=== PATIENT | male | born 1985 | race American Indian/Alaskan Native ===

== ENCOUNTER 2017-11-15 01:26 | Emergency (ER) | payer BC ==
[2017-11-15 01:34] VITALS: BP 145/83
--- NOTE | 2017-11-15 01:54 | Emergency Department Report ---
<GARCIA BASSETT - Last Filed: 11/15/17 01:50> ED Lower Extremity HPI - General Chief Complaint: Extremity Injury, Lower Stated Complaint: LEFT ANKLE PAIN Time Seen by Provider: 11/15/17 01:43 Source: patient Mode of arrival: Ambulatory Limitations: No Limitations - History of Present Illness Initial Comments: This is a 32-year-old -[place] male history of gout who presents for left ankle pain and swelling 3 days usual treatment regimen pain started 3 days ago pt denies fall injury or trauma, current pain is 6/10 exacerbated by weight bearing movement palpation, pain is relieved by rest off loading Complaint: ankle injury -: days(s) Injury: Ankle: Left Type of Injury: other (none) Place: home Severity: moderate Severity scale (0 -10): 5 Improves With: other (nothing tried ) Worsens With: weight bearing, movement, palpation Context: other (denies injury ) Associated Symptoms: swelling, able to partially bear weight - Related Data Previous Rx's Medication Instructions Recorded Last Taken Type Indomethacin 50 mg PO Q8H #30 capsule 11/15/17 Unknown Rx predniSONE [Deltasone] 40 mg PO QDAY #10 tab 11/15/17 Unknown Rx Allergies Allergy/AdvReac Type Severity Reaction Status Date / Time No Known Allergies Allergy Verified 11/15/17 01:37 ED Review of Systems ROS: Stated complaint: LEFT ANKLE PAIN Other details as noted in HPI Constitutional: denies: chills, fever Eyes: denies: eye pain, eye discharge, vision change ENT: denies: ear pain, throat pain Respiratory: denies: cough, shortness of breath, wheezing Cardiovascular: denies: chest pain, palpitations Endocrine: no symptoms reported Gastrointestinal: denies: abdominal pain, nausea, diarrhea Genitourinary: denies: urgency, dysuria Musculoskeletal: joint swelling, arthralgia, myalgia Skin: denies: rash, lesions Neurological: denies: headache, weakness, paresthesias Psychiatric: denies: anxiety, depression Hematological/Lymphatic: denies: easy bleeding, easy bruising ED Past Medical Hx - Past Medical History Previous Medical History?: Yes Additional medical history: gout - Surgical History Past Surgical History?: No - Social History Smoking Status: Former Smoker Substance Use Type: Alcohol - Medications Home Medications: Home Medications Medication Instructions Recorded Confirmed Last Taken Type Indomethacin 50 mg PO Q8H #30 capsule 11/15/17 Unknown Rx predniSONE [Deltasone] 40 mg PO QDAY #10 tab 11/15/17 Unknown Rx ED Physical Exam - General Limitations: No Limitations General appearance: alert, in no apparent distress - Head Head exam: Present: atraumatic, normocephalic - Eye Eye exam: Present: normal appearance - ENT ENT exam: Present: mucous membranes moist - Neck Neck exam: Present: normal inspection, full ROM. Absent: tenderness, lymphadenopathy, thyromegaly - Respiratory Respiratory exam: Present: normal lung sounds bilaterally. Absent: respiratory distress - Cardiovascular Cardiovascular Exam: Present: regular rate, normal rhythm. 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 Absent: calf tenderness - Expanded Lower Extremity Exam Left Ankle exam: Present: tenderness, swelling. Absent: abrasion, laceration, ecchymosis, deformity, crepidus, dislocation, erythema, anterior draw sign Foot/Toe exam: Present: normal inspection, full ROM. Absent: tenderness, swelling, abrasion, laceration, ecchymosis, deformity, crepidus, dislocation, erythema, amputation, puncture wound, foreign body, calcaneal tenderness, tenderness at base of 5th metatarsal, nail avulsion, subungual hematoma Neuro vascular tendon exam: Present: no vascular compromise. Absent: pulse deficit, abnormal cap refill, motor deficit, sensory deficit, tendon deficit, extremity cold to touch, pallor, abnormal 2-point discrimination, decreased fine /light touch, foot drop, peroneal nerve deficit, significant pain with passive ROM of distal joint Gait: Positive: observed and limited by pain - Back Exam Back exam: Present: normal inspection, full ROM. Absent: CVA tenderness (R), CVA tenderness (L), muscle spasm, paraspinal tenderness, vertebral tenderness - Neurological Exam Neurological exam: Present: alert, oriented X3, CN II-XII intact, abnormal gait , reflexes normal. Absent: motor sensory deficit - Expanded Neurological Exam Expanded Patient oriented to: Present: person, place, time Speech: Present: fluid speech Motor strength exam: RUE: 5, LUE: 5, RLE: 5, LLE: 5 DTR: knee (R): 2+, knee (L): 2+, ankle (R): 2+, ankle (L): 2+ Best Eye Response (Jose J): (4) open spontaneously Best Motor Response ([place]): (6) obeys commands Best Verbal Response ([place]): (5) oriented Jose J Total: 15 - Psychiatric Psychiatric exam: Present: normal affect, normal mood - Skin Skin exam: Present: warm, dry, intact, normal color. Absent: rash ED Course Vital Signs 11/15/17 01:27 Temperature 98.0 F Pulse Rate 104 H Respiratory 20 Rate Blood Pressure 145/83 O2 Sat by Pulse 93 Oximetry ED Lower Extremity MDM - Radiology Data Radiology results: report reviewed, image reviewed no fracture no soft tissue abnormality - Medical Decision Making This is gout exacerbation plan prednisone 40 mg by mouth daily 5 indomethacin 50 mg by mouth 3 times a day 10 follow PCP in 2-3 days patient verbalized agreement and understanding to DC plan we'll DC to home in stable condition at this time patient is ambulatory symptoms are improved. Critical care attestation.: If time is entered above; I have spent that time in minutes in the direct care of this critically ill patient, excluding procedure time. ED Disposition Disposition: DC-01 TO HOME OR SELFCARE Is pt being admited?: No Does the pt Need Aspirin: No Condition: Good Instructions: Acute Gouty Arthritis (ED) Prescriptions: Indomethacin 50 mg PO Q8H #30 capsule predniSONE [Deltasone] 40 mg PO QDAY #10 tab Referrals: PRIMARY CARE, [Primary Care Provider] - 3-5 Days Forms: Work/School Release Form(ED) Time of Disposition: 02:20 <ADI VALENTIN - Last Filed: 11/15/17 12:27> ED Lower Extremity MDM - Medical Decision Making I was available for consultations at all times during the patient stay. I did not personally see and was not involved in the care of the patient.
[2017-11-15] MEDS ORDERED: DELTASONE PO ONE (02:04)
[2017-11-15] MEDS ORDERED: ULTRAM PO ONE (02:04)
--- NOTE | 2017-11-15 03:05 | XRay Report ---
FINAL REPORT PROCEDURE: XR ANKLE 3+V LT TECHNIQUE: LEFT ankle radiographs, AP, lateral, and oblique views. CPT 42617 HISTORY: Lt ankle pain tenderness and swelling COMPARISON: No prior studies are available for comparison. FINDINGS: Fracture (s) and/or Dislocation(s): None. Alignment: Normal. Joint space(s): Normal. Soft tissues: Normal. Bone mineralization: Normal. Foreign bodies: None. Calcaneal spurring: There is small calcaneal spurs.. IMPRESSION: There are no fractures or malalignments..
== END 2017-11-15 02:28 | disposition home or self-care (01) ==
LOC: ED 01:26
DX: M10.9 Gout, unspecified (principal); M25.572 Pain in left ankle and joints of left foot; R22.42 Localized swelling, mass and lump, left lower limb; Z87.891 Personal history of nicotine dependence; Z79.899 Other long term (current) drug therapy
CPT/HCPCS: 73610; 99283; J7512

== ENCOUNTER 2018-11-24 22:24 | Emergency (ER) | payer BC ==
[2018-11-24] MEDS ORDERED: ZITHROMAX PO STA (23:56)
[2018-11-24] MEDS ORDERED: ROCEPHIN IM STA (23:56)
[2018-11-24] MEDS ORDERED: XYLOCAINE 1% MPF 5 mL INFILTRATI ONE (23:56)
--- NOTE | 2018-11-25 00:01 | Emergency Department Report ---
ED Male HPI - General Chief complaint: Urogenital-Male Stated complaint: BLADDER PRESSURE Time Seen by Provider: 11/24/18 23:55 Source: patient Mode of arrival: Ambulatory Limitations: No Limitations - History of Present Illness MD Complaint: dysuria -: week(s) Location: penis Radiation: none Severity: mild Quality: burning Consistency: constant Improves with: none Worsens with: none dysuria. denies: swelling, mass, rash, urinary retention, blood in urine, fever, nausea/vomiting, incontinence - Related Data Previous Rx's Medication Instructions Recorded Last Taken Type Indomethacin 50 mg PO Q8H #30 capsule 11/15/17 Unknown Rx predniSONE [Deltasone] 40 mg PO QDAY #10 tab 11/15/17 Unknown Rx Ibuprofen 800 mg PO Q6H 5 Days #20 tablet 04/03/18 Unknown Rx Allergies Allergy/AdvReac Type Severity Reaction Status Date / Time No Known Allergies Allergy Verified 11/15/17 01:37 ED Review of Systems ROS: Stated complaint: BLADDER PRESSURE Other details as noted in HPI Comment: All other systems reviewed and negative ED Past Medical Hx - Past Medical History Previous Medical History?: Yes Additional medical history: gout - Surgical History Past Surgical History?: No - Social History Smoking Status: Never Smoker Substance Use Type: None - Medications Home Medications: Home Medications Medication Instructions Recorded Confirmed Last Taken Type Indomethacin 50 mg PO Q8H #30 capsule 11/15/17 Unknown Rx predniSONE [Deltasone] 40 mg PO QDAY #10 tab 11/15/17 Unknown Rx Ibuprofen 800 mg PO Q6H 5 Days #20 tablet 04/03/18 Unknown Rx ED Physical Exam - General Limitations: No Limitations General appearance: alert, in no apparent distress - Head Head exam: Present: atraumatic, normocephalic - Eye Eye exam: Present: normal appearance - ENT ENT exam: Present: mucous membranes moist - Neck Neck exam: Present: normal inspection - Respiratory Respiratory exam: Present: normal lung sounds bilaterally. Absent: respiratory distress - Cardiovascular Cardiovascular Exam: Present: regular rate, normal rhythm. Absent: systolic murmur, diastolic murmur, rubs, gallop - GI/Abdominal GI/Abdominal exam: Present: soft, normal bowel sounds - Rectal Rectal exam: Present: deferred - exam: Present: normal inspection External exam: Present: normal external exam - Extremities Exam Extremities exam: Present: normal inspection - Back Exam Back exam: Present: normal inspection - Neurological Exam Neurological exam: Present: alert, oriented X3 - Psychiatric Psychiatric exam: Present: normal affect, normal mood - Skin Skin exam: Present: warm, dry, intact, normal color. Absent: rash ED Course Vital Signs 11/24/18 23:02 Temperature 98.4 F Pulse Rate 88 Respiratory 18 Rate Blood Pressure 161/97 O2 Sat by Pulse 96 Oximetry Critical care attestation.: If time is entered above; I have spent that time in minutes in the direct care of this critically ill patient, excluding procedure time. ED Disposition Clinical Impression: Dysuria Disposition: DC-01 TO HOME OR SELFCARE Is pt being admited?: No Does the pt Need Aspirin: No Condition: Stable Instructions: Dysuria (ED) Referrals: [facility] [Provider Group] - 3-5 Days
[2018-11-25 02:19] LABS: Bilirubin,Urine NEG (Negative); Blood,Urine NEG (Negative); Color,Urine Yellow (Yellow); Mucus,Urine FEW /HPF; Protein,Urine <15 mg/dL mg/dL (Negative)
[2018-11-25 02:41] VITALS: BP 146/89
== END 2018-11-25 02:41 | disposition home or self-care (01) ==
LOC: ED 22:24
DX: R30.0 Dysuria (principal); Z87.39 Personal history of other diseases of the musculoskeletal system and connective tissue; Z79.899 Other long term (current) drug therapy
CPT/HCPCS: 81001; 87591; 96372; 99283; J0696

== ENCOUNTER 2019-08-19 13:12 | Emergency (ER) | payer BC ==
[2019-08-19 13:24] VITALS: BP 126/102
--- NOTE | 2019-08-19 15:22 | XRay Report ---
LEFT KNEE 4 VIEWS INDICATION / CLINICAL INFORMATION: left knee pain, joint effusion. COMPARISON: None available. FINDINGS: BONES and JOINT(S): No acute fracture or subluxation. No significant arthritis. SOFT TISSUES: There is a probable small joint effusion. No additional significant abnormality. ADDITIONAL FINDINGS: None. IMPRESSION: Probable small left knee joint effusion. Signer Name: Khoa May MD Signed: 08/19/2019 3:18 PM Workstation Name: [id number]
--- NOTE | 2019-08-19 15:30 | Emergency Department Report ---
ED Extremity Problem HPI - General Chief complaint: Extremity Problem,Nontraumatic Stated complaint: LEFT KNEE PAIN Time Seen by Provider: 08/19/19 14:36 Source: patient Mode of arrival: Stretcher Limitations: No Limitations - History of Present Illness Initial comments: Patient is a 33-year-old male presents emergency room with complaints of left knee pain for the last couple days. He denies any fall or injury. He states that his left knee feels swollen. He states that he has pain with movement and pain with walking. He states he has been taking ibuprofen without much relief. He states that he took 1 hydrocodone which improved his pain. He has not seen orthopedic doctor. He denies any numbness or weakness. He has a past medical history of hypertension and did not take his medication today. He denies any allergies to medications. - Related Data Previous Rx's Medication Instructions Recorded Last Taken Type Indomethacin 50 mg PO Q8H #30 capsule 11/15/17 Unknown Rx predniSONE [Deltasone] 40 mg PO QDAY #10 tab 11/15/17 Unknown Rx Ibuprofen 800 mg PO Q6H 5 Days #20 tablet 04/03/18 Unknown Rx Indomethacin 50 mg PO Q8H #21 capsule 08/19/19 Unknown Rx predniSONE [Deltasone] 40 mg PO QDAY 5 Days #10 tab 08/19/19 Unknown Rx traMADoL [Ultram 50 MG tab] 50 mg PO Q6HR PRN #7 tablet 08/19/19 Unknown Rx Allergies Allergy/AdvReac Type Severity Reaction Status Date / Time No Known Allergies Allergy Verified 11/15/17 01:37 ED Review of Systems ROS: Stated complaint: LEFT KNEE PAIN Other details as noted in HPI Comment: All other systems reviewed and negative ED Past Medical Hx - Past Medical History Previous Medical History?: Yes Additional medical history: gout - Surgical History Past Surgical History?: No - Social History Smoking Status: Never Smoker Substance Use Type: None - Medications Home Medications: Home Medications Medication Instructions Recorded Confirmed Last Taken Type Indomethacin 50 mg PO Q8H #30 capsule 11/15/17 Unknown Rx predniSONE [Deltasone] 40 mg PO QDAY #10 tab 11/15/17 Unknown Rx Ibuprofen 800 mg PO Q6H 5 Days #20 tablet 04/03/18 Unknown Rx Indomethacin 50 mg PO Q8H #21 capsule 08/19/19 Unknown Rx predniSONE [Deltasone] 40 mg PO QDAY 5 Days #10 tab 08/19/19 Unknown Rx traMADoL [Ultram 50 MG tab] 50 mg PO Q6HR PRN #7 tablet 08/19/19 Unknown Rx ED Physical Exam - General Limitations: No Limitations General appearance: alert, other (appears to be in slight discomfort) - Head Head exam: Present: atraumatic, normocephalic - Eye Eye exam: Present: normal appearance - ENT ENT exam: Present: mucous membranes moist - Extremities Exam Extremities exam: Present: other (generalized ttp of the left knee, small amount of edema to the left knee, no erythema, no increased warmth, decreased ROM secondary to discomfort, neurovasculalry intact) - Neurological Exam Neurological exam: Present: alert, oriented X3 - Psychiatric Psychiatric exam: Present: normal affect, normal mood - Skin Skin exam: Present: warm, dry ED Course Vital Signs 08/19/19 13:18 Temperature 97.4 F L Pulse Rate 101 H Respiratory 16 Rate Blood Pressure 126/102 O2 Sat by Pulse 96 Oximetry ED Medical Decision Making - Radiology Data Radiology results: report reviewed LEFT KNEE 4 VIEWS INDICATION / CLINICAL INFORMATION: left knee pain, joint effusion. COMPARISON: None available. FINDINGS: BONES and JOINT(S): No acute fracture or subluxation. No significant arthritis. SOFT TISSUES: There is a probable small joint effusion. No additional significant abnormality. ADDITIONAL FINDINGS: None. IMPRESSION: Probable small left knee joint effusion. Signer Name: Khoa May MD Signed: 08/19/2019 3:18 PM Workstation Name: [id number] Transcribed By: MN Dictated By: Khoa May MD Electronically Authenticated By: Khoa May MD Signed Date/Time: 08/19/19 1518 DD/ 1517 TD/TT: - Medical Decision Making Patient is a 33-year-old male presents emergency room with complaints of left knee pain for the last couple days. He denies any fall or injury. He states that his left knee feels swollen. He states that he has pain with movement and pain with walking. He states he has been taking ibuprofen without much relief. He states that he took 1 hydrocodone which improved his pain. He has not seen orthopedic doctor. He denies any numbness or weakness. He has a past medical history of hypertension and did not take his medication today. He denies any allergies to medications. on exam: generalized ttp of the left knee, small amount of edema to the left knee, no erythema, no increased warmth, decreased ROM secondary to discomfort, neurovasculalry intact. XR of the left knee: Probable small left knee joint effusion. No large joint effusion that requires arthrocentesis emergently. No signs of septic joint. Could be related to an arthritis versus gout. Patient given prescription for indomethacin, steroids, tramadol. Patient will be referred to orthopedic doctor. advised pt Please take medication as prescribed. Do not drive or operate heavy machinery while taking pain medication. Please follow-up with an orthopedic doctor for further evaluation. Return to the emergency room for any new or worsening symptoms. Critical care attestation.: If time is entered above; I have spent that time in minutes in the direct care of this critically ill patient, excluding procedure time. ED Disposition Clinical Impression: Left knee pain Qualifiers: Chronicity: acute Qualified Code(s): M25.562 - Pain in left knee Joint effusion Qualifiers: Effusion of joint location: knee Laterality: left Qualified Code(s): M25.462 - Effusion, left knee Disposition: DC- TO HOME OR SELFCARE Is pt being admited?: No Does the pt Need Aspirin: No Condition: Stable Instructions: Acute Gouty Arthritis (ED), Knee Pain (ED), RICE Therapy (ED) Additional Instructions: Please take medication as prescribed. Do not drive or operate heavy machinery while taking pain medication. Please follow-up with an orthopedic doctor for further evaluation. Return to the emergency room for any new or worsening symptoms. Prescriptions: predniSONE [Deltasone] 40 mg PO QDAY 5 Days #10 tab Indomethacin 50 mg PO Q8H #21 capsule traMADoL [Ultram 50 MG tab] 50 mg PO Q6HR PRN #7 tablet PRN Reason: Pain , Severe (7-10) Referrals: SHANIA SCHMITT MD [Staff Physician] - 3-5 Days [facility] [Provider Group] - 3-5 Days Forms: Work/School Release Form(ED) Time of Disposition: 15:28 Print Language: CZECH
== END 2019-08-19 15:40 | disposition home or self-care (01) ==
LOC: ED 13:12
DX: M25.562 Pain in left knee (principal); M25.462 Effusion, left knee
CPT/HCPCS: 99283

== ENCOUNTER 2020-09-03 09:53 | Emergency (ER) | payer BC ==
[2020-09-03 10:06] VITALS: BP 151/125
--- NOTE | 2020-09-03 10:11 | Emergency Department Report ---
Chief Complaint: Extremity Injury, Lower Stated Complaint: SWOLLEN LEFT KNEE Time Seen by Provider: 09/03/20 10:06 - HPI History of Present Illness: 34 yo with l knee pain since Wednesday when he hit it on car door ambulatory - ROS Review of Systems: knee pain sp contusion no other complaints - Exam Vital Signs: Vital Signs 09/03/20 10:03 Temperature 98.5 F Pulse Rate 77 Respiratory 18 Rate Blood Pressure 151/125 O2 Sat by Pulse 100 Oximetry hx htn did not take his bp meds no cp no sob no headache pos knee pain educated on taking meds he will do so he will also follow up with pcp Physical Exam: alert oriented ambulatory no focal def. s1s2 lungs cta abd snt knee- no swelling/bruising no tenderness on palpation ambulatory pt requesting work note MSE screening note: Focused history and physical exam performed. Due to findings the following was ordered: no life threat a/c htn- did not take meds this AM educated on bp and stroke risk referral to pcp knee pain- self limiting conservative are referral to ortho MSE home with referrals Patient discussed with doctor:: MADELINE BERMUDEZ ED Disposition for MSE Clinical Impression: Knee pain, Chronic knee pain Disposition: Z-07 MED SCREENING EXAM-LEFT Is pt being admited?: No Does the pt Need Aspirin: No Condition: Stable Instructions: Acute Knee Pain, Adult Additional Instructions: ice rest elevate take bp meds follow up with pcp referral below motrin over the counter 800 mg every 8 hours for pain- take with food alternate with tylenol 1000 mg every 8 hours for pain Referrals: REUBEN WEBER MD [Staff Physician] - 3-5 Days SHANIA SCHMITT MD [Staff Physician] - 3-5 Days Forms: Work/School Release Form(ED) Time of Disposition: 10:10
== END 2020-09-03 11:18 | disposition left against medical advice (07) ==
LOC: ED 09:53
DX: M79.89 Other specified soft tissue disorders (principal); Z53.21 Procedure and treatment not carried out due to patient leaving prior to being seen by health care provider

== ENCOUNTER 2020-11-20 09:39 | Emergency (ER) | payer SELFPAY ==
[2020-11-20 10:20] VITALS: BP 141/82
[2020-11-20] MEDS ORDERED: KETOROLAC 60 MG/2 ML INJ IM ONE (12:18)
[2020-11-20] MEDS ORDERED: HYDROcodone/ACETAMINOPHEN 5-325 MG TAB PO ONE (12:18)
--- NOTE | 2020-11-20 12:26 | Emergency Department Report ---
ED General Adult HPI - General Chief complaint: Extremity Injury, Lower Stated complaint: RIGHT HIP PAIN Time Seen by Provider: 11/20/20 10:42 Source: patient Mode of arrival: Ambulatory Limitations: No Limitations - History of Present Illness Initial comments: 35-year-old -[place] male patient presents with complaints of sudden onset of right hip pain x2 days. He denies any injury, leg swelling, numbness/tingling/weakness in his limbs, or difficulty with movement of the limb. He rates his current pain as a 9/10 in severity and states it occurs with walking and bending of the hip. No history of cancer or fever/chills/sweats per patient. Ibuprofen and Flexeril are not helping per patient -: Sudden - Related Data Previous Rx's Medication Instructions Recorded Last Taken Type Amlodipine Besylate [Norvasc] 5 mg PO DAILY #30 tablet 09/03/20 Unknown Rx Naproxen [Naprosyn] 500 mg PO BID PRN #20 tablet 11/20/20 Unknown Rx methocarbamoL [Methocarbamol] 1,500 mg PO TID PRN #24 tablet 11/20/20 Unknown Rx Allergies Allergy/AdvReac Type Severity Reaction Status Date / Time No Known Allergies Allergy Verified 09/03/20 10:07 ED Review of Systems ROS: Stated complaint: RIGHT HIP PAIN Other details as noted in HPI Constitutional: denies: chills, diaphoresis, fever, malaise, weakness Gastrointestinal: denies: abdominal pain Genitourinary: denies: urgency, dysuria, frequency, hematuria Musculoskeletal: arthralgia. denies: joint swelling Skin: denies: change in color Neurological: denies: numbness, paresthesias ED Past Medical Hx - Past Medical History Previous Medical History?: Yes Hx Hypertension: Yes Additional medical history: gout - Surgical History Past Surgical History?: No - Social History Smoking Status: Current Every Day Smoker Substance Use Type: Alcohol - Medications Home Medications: Home Medications Medication Instructions Recorded Confirmed Last Taken Type Amlodipine Besylate [Norvasc] 5 mg PO DAILY #30 tablet 09/03/20 Unknown Rx Naproxen [Naprosyn] 500 mg PO BID PRN #20 tablet 11/20/20 Unknown Rx methocarbamoL [Methocarbamol] 1,500 mg PO TID PRN #24 tablet 11/20/20 Unknown Rx ED Physical Exam - General Limitations: No Limitations General appearance: alert, in no apparent distress, obese (morbid) - Head Head exam: Present: atraumatic, normocephalic - Eye Eye exam: Present: normal appearance. Absent: scleral icterus - GI/Abdominal GI/Abdominal exam: Present: soft. Absent: tenderness - Expanded Lower Extremity Exam Right Hip exam: Present: full ROM, tenderness (Lateral and groin). Absent: swelling, deformity, crepidus Knee exam: Present: normal inspection Lower Leg exam: Present: normal inspection Gait: Positive: antalgic - Back Exam Back exam: Absent: vertebral tenderness - Expanded Back Exam Expanded Back exam: Absent: saddle anesthesia - Neurological Exam Neurological exam: Present: alert, oriented X3 - Psychiatric Psychiatric exam: Present: normal affect, normal mood - Skin Skin exam: Present: warm, dry, intact, normal color. Absent: rash ED Course Vital Signs 11/20/20 11/20/20 10:18 10:19 Temperature 98.3 F Pulse Rate 91 H Respiratory 18 Rate Blood Pressure 141/82 O2 Sat by Pulse 95 Oximetry ED Medical Decision Making - Radiology Data Radiology results: report reviewed Right hip radiograph, 2 views HISTORY: Pain COMPARISON: None FINDINGS: No acute fracture. 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 No evidence of femoral head osteonecrosis. 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 No focal soft tissue abnormality. IMPRESSION: No acute abnormality of the right hip. 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 No acute bony abnormalities. Patient is able to ambulate. Recommend follow-up with orthopedics for further evaluation of bony lesion and hip pain. He is well- appearing, his vitals are within normal limits, he is stable for discharge home. Discussed strict return precautions in detail with patient who verbalizes understanding. Critical care attestation.: If time is entered above; I have spent that time in minutes in the direct care of this critically ill patient, excluding procedure time. ED Disposition Clinical Impression: Acute right hip pain, Abnormal x-ray of femur Disposition: DC-01 TO HOME OR SELFCARE Is pt being admited?: No Condition: Stable Instructions: Hip Pain Prescriptions: methocarbamoL [Methocarbamol] 1,500 mg PO TID PRN #24 tablet PRN Reason: muscle spasm/tightness Naproxen [Naprosyn] 500 mg PO BID PRN #20 tablet PRN Reason: pain Referrals: [facility] [Provider Group] - 3-5 Days Forms: Work/School Release Form(ED)
--- NOTE | 2020-11-20 13:38 | XRay Report ---
Right hip radiograph, 2 views HISTORY: Pain COMPARISON: None FINDINGS: No acute fracture. 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 No evidence of femoral head osteonecrosis. 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 No focal soft tissue abnormality. IMPRESSION: No acute abnormality of the right hip. Signer Name: Bill Carballo MD Signed: 11/20/2020 1:33 PM Workstation Name: [id number]
--- NOTE | 2020-11-20 14:42 | Vascular Lab Report ---
DUPLEX DOPPLER LOWER EXTREMITY VEINS, RIGHT INDICATION / CLINICAL INFORMATION: acute upper thigh pain. TECHNIQUE: Duplex doppler imaging was performed through the veins of the right lower extremity using venous comp ression and other maneuvers. COMPARISON: None available. FINDINGS: RIGHT COMMON FEMORAL VEIN: Negative. RIGHT FEMORAL VEIN: Negative. RIGHT POPLITEAL VEIN: Negative. RIGHT CALF VEINS: Negative. ADDITIONAL FINDINGS: None. IMPRESSION: 1. No sonographic evidence for DVT in the right lower extremity. Signer Name: Bill Carballo MD Signed: 11/20/2020 2:38 PM Workstation Name: [id number]
== END 2020-11-20 15:02 | disposition home or self-care (01) ==
LOC: ED 09:39
DX: M25.551 Pain in right hip (principal); R93.7 Abnormal findings on diagnostic imaging of other parts of musculoskeletal system; I10 Essential (primary) hypertension; F17.200 Nicotine dependence, unspecified, uncomplicated; Z79.899 Other long term (current) drug therapy
CPT/HCPCS: 73502; 93971; 96372; 99284; J1885

== ENCOUNTER 2021-04-21 13:30 | Emergency (ER) | payer SELFPAY ==
[2021-04-21 14:31] VITALS: BP 175/102
[2021-04-21] MEDS ORDERED: oxyCODONE /ACETAMINOPHEN 5-325MG TAB PO ONE (18:21)
[2021-04-21] MEDS ORDERED: KETOROLAC 60 MG/2 ML INJ IM ONE (18:21)
[2021-04-21] MEDS ORDERED: COLCHICINE 0.6 MG TAB PO ONE (18:21)
[2021-04-21] MEDS ORDERED: dexAMETHasone 20 MG/5 ML VIAL IV ONE (18:21)
--- NOTE | 2021-04-21 18:24 | Emergency Department Report ---
Upper Extremity - HPI Chief Complaint: Extremity Injury, Upper Stated Complaint: ELBOW PAIN Time Seen by Provider: 04/21/21 18:21 Upper Extremity: Right Elbow Occurred When: 4 Days Mechanism: Unsure Severity: severe Symptoms: Yes Pain with Movement, Yes Limited Range of Movement, Yes Swelling, No Deformity, No Numbness, No Weakness, No Bruising/Ecchymosis, No Laceration or Abrasion Other History: 35-year-old -[place] male presents to the emergency room complaining of right elbow pain that started about Wednesday. Patient denies any injury to his elbow. He states he does have a history of gout but mostly in his foot. Patient denies any recent consumption of red meat liquor cheese. He states he did have seafood last month. States is been drinking plenty of water but did have some lemonade today. Patient denies any fever or chills. Reports any past medical history of gout. ED Review of Systems ROS: Stated complaint: ELBOW PAIN Other details as noted in HPI Comment: All other systems reviewed and negative ED Past Medical Hx - Past Medical History Hx Hypertension: Yes Additional medical history: gout - Social History Smoking Status: Unknown if ever smoked - Medications Home Medications: Home Medications Medication Instructions Recorded Confirmed Last Taken Type Amlodipine Besylate [Norvasc] 5 mg PO DAILY #30 tablet 09/03/20 Unknown Rx methocarbamoL [Methocarbamol] 1,500 mg PO TID PRN #24 tablet 11/20/20 Unknown Rx Colchicine [Colcrys] 0.6 mg PO BID 3 Days #6 tablet 04/21/21 Unknown Rx Naproxen [Naprosyn] 500 mg PO BID PRN #20 tablet 04/21/21 Unknown Rx oxyCODONE /ACETAMINOPHEN [Percocet 1 tab PO Q6HR PRN #12 tablet 04/21/21 U nknown Rx 5/325 mg] predniSONE [Deltasone] 50 mg PO QDAY #5 tab 04/21/21 Unknown Rx Upper Extremity Exam - Exam General: Vital signs noted. No distress. Alert and acting appropriately. Head and Torso: No HEENT Abnormality, No Neck Tenderness, No Chest/Lungs Abnormality, No Abdominal Tenderness, No Back Tenderness Shoulder Exam: Yes Normal Range of Motion in Shoulder, No Shoulder Tenderness, No Clavicle Tenderness, No Shoulder Deformity, No AC Joint Tenderness Arm Exam: No Arm/Humerus Tenderness, No Arm Deformity Elbow: Yes Elbow Tenderness, Yes Normal Range of Motion in Elbow, No Elbow Deformity Forearm: Yes Forearm Tenderness, No Forearm Deformity, No Pain with Pronation, No Pain with Supination Wrist: Yes Normal ROM in Wrist, No Wrist Tenderness, No Wrist Deformity, No Snuffbox Tenderness, No Pain with Axial Thumb Compression CMS Exam: No Broken Skin, No Normal Distal Pulses, No Normal Capillary Refill, No Normal Distal Sensation ED Course Vital Signs 04/21/21 14:29 Temperature 98.2 F Pulse Rate 88 Respiratory 18 Rate Blood Pressure 175/102 [Left] O2 Sat by Pulse 96 Oximetry ED Medical Decision Making - Medical Decision Making 35-year-old -[place] male presents to the emergency room complaining of right elbow pain that started about Wednesday. Patient denies any injury to his elbow. He states he does have a history of gout but mostly in his foot. Patient denies any recent consumption of red meat liquor cheese. He states he did have seafood last month. States is been drinking plenty of water but did have some lemonade today. Patient denies any fever or chills. Reports any past medical history of gout. Right elbow mildly swollen tenderness to touch full range of motion. Patient be ordered Toradol, dexamethasone, Percocet and colchicine. Patient be discharged home on gout medication. Critical care attestation.: If time is entered above; I have spent that time in minutes in the direct care of this critically ill patient, excluding procedure time. ED Disposition Clinical Impression: Acute gout of right elbow Disposition: 01 HOME / SELF CARE / HOMELESS Is pt being admited?: No Does the pt Need Aspirin: No Condition: Stable Instructions: Low-Purine Eating Plan Additional Instructions: Please take medications as prescribed. Do not operate heavy machinery while taking pain medication. Be sure to increase your water intake and advance your diet as tolerated. Please avoid red meats seafood cheese wine beer liquor. Follow-up with your primary care provider. Prescriptions: Colchicine [Colcrys] 0.6 mg PO BID 3 Days #6 tablet predniSONE [Deltasone] 50 mg PO QDAY #5 tab Naproxen [Naprosyn] 500 mg PO BID PRN #20 tablet PRN Reason: pain oxyCODONE /ACETAMINOPHEN [Percocet 5/325 mg] 1 tab PO Q6HR PRN #12 tablet PRN Reason: Pain , Severe (7-10) Referrals: PRIMARY CARE, [Primary Care Provider] - 3-5 Days Forms: Work/School Release Form(ED) Time of Disposition: 19:26
== END 2021-04-21 19:36 | disposition home or self-care (01) ==
LOC: ED 13:30
DX: M10.9 Gout, unspecified (principal); I10 Essential (primary) hypertension
CPT/HCPCS: 96372; 96374; 99283; J1100; J1885

== ENCOUNTER 2021-07-20 04:33 | Emergency (ER) | payer SELFPAY ==
[2021-07-20 05:43] LABS: Basophils % (Auto) 0.6 % (0.0-1.8); Eosinophils # (Auto) 0.2 K/mm3 (0.0-0.4); Eosinophils % (Auto) 4.2 % (0.0-4.3); Lymphocytes # (Auto) 2.1 K/mm3 (1.2-5.4); Lymphocytes % (Auto) 39.1 % (13.4-35.0); Mean Corpuscular HGB Conc 33 % (32-34); Mean Corpuscular Volume 87 fl (84-94); Monocytes # (Auto) 0.4 K/mm3 (0.0-0.8); Monocytes % (Auto) 8.5 % (0.0-7.3); Platelet Count 251 K/mm3 (140-440); Red Blood Count 4.62 M/mm3 (3.65-5.03); Red Cell Distribution Width 12.7 % (13.2-15.2)
[2021-07-20 06:15] LABS: Alanine Aminotransferase 33 units/L (7-56); Albumin 4.3 g/dL (3.9-5); BUN/Creatinine Ratio 15; Blood Urea Nitrogen 16 mg/dL (9-20); Hemolysis Index 21
[2021-07-20] MEDS ORDERED: SODIUM CHLORIDE 0.9% 1000 ML 1,000 ML IV ONE (07:27)
[2021-07-20] MEDS ORDERED: KETOROLAC 30 MG/1 ML INJ IV ONE (07:27)
--- NOTE | 2021-07-20 07:31 | Emergency Department Report ---
ED Abdominal Pain HPI - General Chief Complaint: Abdominal Pain Stated Complaint: ABD PAIN Time Seen by Provider: 07/20/21 06:15 Source: patient Mode of arrival: Ambulatory Limitations: No Limitations - History of Present Illness Initial Comments: This is a 35-year-old male nontoxic, well nourished in appearance, no acute signs of distress presents to the ED with c/o of dysuria, and sharp lower abdominal pain with flank pain that is intermittent times several days. Patient stated noticed some hematuria yesterday on one occasion. Denies any penile discharge. Denies any testicular pain or swelling. Patient denies any nausea vomiting. Patient denies any radiation of pain. Describes pain as burning when pain and sharp intermittently. Patient denies chest pain, short of breath, fever, hemoptysis, blood in stool, chills, headache, stiff neck, numbness or tingling. Patient denies any diarrhea or constipation. Denies any blood in stool. Patient denies any recent travels. Location: LLQ, RLQ Radiation: none Migration to: no migration Severity: mild Severity scale (0 -10): 3 Quality: sharp, burning Consistency: intermittent Improves With: nothing Worsens With: other (urination ) Associated Symptoms: dysuria. denies: nausea, vomiting, diarrhea, fever, chills, constipation, hematemesis, hematochezia, melena, hematuria, anorexia, syncope - Related Data Previous Rx's Medication Instructions Recorded Last Taken Type Amlodipine Besylate [Norvasc] 5 mg PO DAILY #30 tablet 09/03/20 Unknown Rx methocarbamoL [Methocarbamol] 1,500 mg PO TID PRN #24 tablet 11/20/20 Unknown Rx Colchicine [Colcrys] 0.6 mg PO BID 3 Days #6 tablet 04/21/21 Unknown Rx Naproxen [Naprosyn] 500 mg PO BID PRN #20 tablet 04/21/21 Unknown Rx oxyCODONE /ACETAMINOPHEN [Percocet 1 tab PO Q6HR PRN #12 tablet 04/21/21 Unknown Rx 5/325 mg] predniSONE [Deltasone] 50 mg PO QDAY #5 tab 04/21/21 Unknown Rx Allergies Allergy/AdvReac Type Severity Reaction Status Date / Time No Known Allergies Allergy Verified 09/03/20 10:07 ED Review of Systems ROS: Stated complaint: ABD PAIN Other details as noted in HPI Comment: All other systems reviewed and negative Constitutional: denies: chills, fever Eyes: denies: eye pain, eye discharge, vision change ENT: denies: ear pain, throat pain Respiratory: denies: cough, shortness of breath, wheezing Cardiovascular: denies: chest pain, palpitations Endocrine: no symptoms reported Gastrointestinal: abdominal pain. denies: nausea, vomiting, diarrhea, constipation, hematemesis, melena, hematochezia Genitourinary: dysuria, hematuria. denies: urgency, frequency, discharge, testicular pain, testicular mass Musculoskeletal: denies: back pain, joint swelling, arthralgia Skin: denies: rash, lesions Neurological: denies: headache, weakness, paresthesias Psychiatric: denies: anxiety, depression Hematological/Lymphatic: denies: easy bleeding, easy bruising ED Past Medical Hx - Past Medical History Previous Medical History?: Yes Hx Hypertension: Yes (NOT MEDICATED) Additional medical history: gout - Surgical History Past Surgical History?: Yes - Social History Smoking Status: Never Smoker Substance Use Type: None - Medications Home Medications: Home Medications Medication Instructions Recorded Confirmed Last Taken Type Amlodipine Besylate [Norvasc] 5 mg PO DAILY #30 tablet 09/03/20 Unknown Rx methocarbamoL [Methocarbamol] 1,500 mg PO TID PRN #24 tablet 11/20/20 Unknown Rx Colchicine [Colcrys] 0.6 mg PO BID 3 Days #6 tablet 04/21/21 Unknown Rx Naproxen [Naprosyn] 500 mg PO BID PRN #20 tablet 04/21/21 Unknown Rx oxyCODONE /ACETAMINOPHEN [Percocet 1 tab PO Q6HR PRN #12 tablet 04/21/21 Unkn own Rx 5/325 mg] predniSONE [Deltasone] 50 mg PO QDAY #5 tab 04/21/21 Unknown Rx ED Physical Exam - General Limitations: No Limitations General appearance: alert, in no apparent distress - Head Head exam: Present: atraumatic, normocephalic - Eye Eye exam: Present: normal appearance - ENT ENT exam: Present: normal exam - Neck Neck exam: Present: normal inspection, full ROM. Absent: lymphadenopathy - Respiratory Respiratory exam: Present: normal lung sounds bilaterally. Absent: respiratory distress, wheezes, rales, rhonchi, stridor, chest wall tenderness, accessory muscle use, decreased breath sounds, prolonged expiratory - Cardiovascular Cardiovascular Exam: Present: regular rate, normal rhythm, normal heart sounds. Absent: bradycardia, tachycardia, irregular rhythm, systolic murmur, diastolic murmur, rubs, gallop - GI/Abdominal GI/Abdominal exam: Present: soft, normal bowel sounds. Absent: distended, tenderness, guarding, rebound, rigid - Rectal Rectal exam: Present: deferred - exam: Present: normal inspection, other (Bag End Sewer Danika RN present during exam). Absent: testicular tenderness, urethral discharge, scrotal swelling, vertical testicular lie - Extremities Exam Extremities exam: Present: normal inspection, full ROM - Back Exam Back exam: Present: normal inspection, full ROM. Absent: tenderness, CVA tenderness (R), CVA tenderness (L), muscle spasm, paraspinal tenderness, vertebral tenderness, rash noted - Neurological Exam Neurological exam: Present: alert, oriented X3, normal gait - Psychiatric Psychiatric exam: Present: normal affect, normal mood - Skin Skin exam: Present: warm, dry, intact, normal color. Absent: rash ED Course Vital Signs 07/20/21 04:44 Temperature 98.1 F Pulse Rate 92 H Respiratory 18 Rate Blood Pressure 175/89 O2 Sat by Pulse 97 Oximetry - Reevaluation(s) Reevaluation #1: 07/20/21 07:31 Patient is speaking in full sentences with no signs of distress noted. ED Medical Decision Making - Lab Data Result diagrams: 07/20/21 05:15 07/20/21 05:15 Lab Results 07/20/21 07/20/21 07/20/21 Range/Units 05:15 05:15 07:57 WBC 5.3 (4.5-11.0) K/mm3 RBC 4.62 (3.65-5.03) M/mm3 Hgb 13.0 (11.8-15.2) gm/dl Hct 40.0 (35.5-45.6) % MCV 87 (84-94) fl MCH 28 (28-32) pg MCHC 33 (32-34) % RDW 12.7 L (13.2-15.2) % Plt Count 251 (140-440) K/mm3 Lymph % (Auto) 39.1 H (13.4-35.0) % Barron % (Auto) 8.5 H (0.0-7.3) % Eos % (Auto) 4.2 (0.0-4.3) % Baso % (Auto) 0.6 (0.0-1.8) % Lymph # (Auto) 2.1 (1.2-5.4) K/mm3 Barron # (Auto) 0.4 (0.0-0.8) K/mm3 Eos # (Auto) 0.2 (0.0-0.4) K/mm3 Baso # (Auto) 0.0 (0.0-0.1) K/mm3 Seg Neutrophils % 47.6 (40.0-70.0) % Seg Neutrophils # 2.5 (1.8-7.7) K/mm3 Sodium 138 (137-145) mmol/L Potassium 4.2 (3.6-5.0) mmol/L Chloride 101.3 (98-107) mmol/L Carbon Dioxide 23 (22-30) mmol/L Anion Gap 18 mmol/L BUN 16 (9-20) mg/dL Creatinine 1.1 (0.8-1.3) mg/dL Estimated GFR > 60 ml/min BUN/Creatinine Ratio 15 % Glucose 95 (75-100) mg/dL Calcium 9.0 (8.4-10.2) mg/dL Total Bilirubin 0.30 (0.1-1.2) mg/dL AST 20 (5-40) units/L ALT 33 (7-56) units/L Alkaline Phosphatase 80 (35-129) units/L Total Protein 7.1 (6.3-8.2) g/dL Albumin 4.3 (3.9-5) g/dL Albumin/Globulin Ratio 1.5 % Urine Color Freida (Yellow) Urine Turbidity Clear (Clear) Urine pH 5.0 (5.0-7.0) Ur Specific [place] 1.026 (1.003-1.030) Urine Protein <15 mg/dl (Negative) mg/dL Urine Glucose (UA) Neg (Negative) mg/dL Urine Ketones Neg (Negative) mg/dL Urine Blood Neg (Negative) Urine Nitrite Neg (Negative) Urine Bilirubin Neg (Negative) Urine Urobilinogen 4.0 (<2.0) mg/dL Ur Leukocyte Esterase Neg (Negative) Urine WBC (Auto) 1.0 (0.0-6.0) /HPF Urine RBC (Auto) 3.0 (0.0-6.0) /HPF U Epithel Cells (Auto) < 1.0 (0-13.0) /HPF Urine Mucus Few /HPF - Radiology Data [facility] [address] [place] [address] Cat Scan Report Signed Patient: YULISSA BERMUDEZ JR MR #: [id number] : 1985 Acct:[id number] Age/Sex: 35 / M ADM Date: 07/20/21 Loc: ED Attending Dr: Ordering Physician: CONSTANTINE STAPLETON NP Date of Service: 07/20/21 Procedure(s): CT abdomen pelvis wo con Accession Number(s): [id number] cc: CONSTANTINE STAPLETON NP CT ABDOMEN AND PELVIS WITHOUT CONTRAST INDICATION / CLINICAL INFORMATION: dysuria, hematuria, and abd/flank pains. TECHNIQUE: Axial CT images were obtained through the abdomen and pelvis without IV contrast. All CT scans at this location are performed using CT dose reduction for ALARA by means of automated exposure control. COMPARISON: None available. FINDINGS: LOWER CHEST: No significant abnormality of the imaged chest. LIVER: Mild hepatic steatosis suggested. GALLBLADDER: No significant abnormality. BILE DUCTS: No significant abnormality. SPLEEN: No significant abnormality. PANCREAS: No significant abnormality. ADRENALS: No significant abnormality. RIGHT KIDNEY / URETER: No significant abnormality. LEFT KIDNEY / URETER: No significant abnormality. STOMACH / DUODENUM / SMALL BOWEL: No significant abnormality. COLON: No significant abnormality. APPENDIX: No significant abnormality. PERITONEUM: No free air or free fluid are present within the abdomen or pelvis. LYMPH NODES: No significant adenopathy. AORTA / ARTERIES: No significant abnormality. IVC / VEINS: No significant abnormality. URINARY BLADDER: No significant abnormality. REPRODUCTIVE ORGANS: No significant abnormality. ADDITIONAL ABDOMINAL/PELVIC FINDINGS: None. SKELETAL SYSTEM: No significant abnormality. IMPRESSION: 1. No acute findings. No urolithiasis. Signer Name: Manolo Ray II, MD Signed: 07/20/2021 7:54 AM Workstation Name: [id number] Transcribed By: MARY Dictated By: MANOLO RAY II, MD Electronically Authenticated By: MANOLO RAY II, MD Signed Date/Time: 07/20/21 075 DD/ 1 TD/TT: - Medical Decision Making 35-year-old male that presents with dysuria. Patient is stable and was examined by me. Vital signs are stable. V physical exam otherwise is unremarkable. He currently chlamydia from urine has been sent to lab and should have results in by 3 to 5 days. Physical exam does not show pyonephritis or a possible coronary chlamydia. Patient is notified of the lab results, urine results and CT with no questions noted by the patient. The symptoms can be resulted from a possible renal stone that was passed. At this time patient was instructed to follow-up with a primary care doctor in 3-5 days or if symptoms worsen and continue return to emergency room as soon as possible. At time of discharge, the patient does not seem toxic or ill in appearance. No acute signs of distress noted. Patient agrees to discharge treatment plan of care. No further questions noted by the patient. Critical care attestation.: If time is entered above; I have spent that time in minutes in the direct care of this critically ill patient, excluding procedure time. ED Disposition Clinical Impression: Dysuria, Flank pain, Lower abdominal pain Disposition: 01 HOME / SELF CARE / HOMELESS Is pt being admited?: No Does the pt Need Aspirin: No Condition: Stable Additional Instructions: Follow-up with a primary care doctor in 3-5 days or if symptoms worsen and continue return to emergency room as soon as possible. Referrals: MICAH ELKINS MD [Primary Care Provider] - 3-5 Days REUBEN WEBER MD [Staff Physician] - 3-5 Days Time of Disposition: 10:13
--- NOTE | 2021-07-20 07:59 | Cat Scan Report ---
CT ABDOMEN AND PELVIS WITHOUT CONTRAST INDICATION / CLINICAL INFORMATION: dysuria, hematuria, and abd/flank pains. TECHNIQUE: Axial CT images were obtained through the abdomen and pelvis without IV contrast. All CT scans at this location are performed using CT dose reduction for ALARA by means of automated exposure control. COMPARISON: None available. FINDINGS: LOWER CHEST: No significant abnormality of the imaged chest. LIVER: Mild hepatic steatosis suggested. GALLBLADDER: No significant abnormality. BILE DUCTS: No significant abnormality. SPLEEN: No significant abnormality. PANCREAS: No significant abnormality. ADRENALS: No significant abnormality. RIGHT KIDNEY / URETER: No significant abnormality. LEFT KIDNEY / URETER: No significant abnormality. STOMACH / DUODENUM / SMALL BOWEL: No significant abnormality. COLON: No significant abnormality. APPENDIX: No significant abnormality. PERITONEUM: No free air or free fluid are present within the abdomen or pelvis. LYMPH NODES: No significant adenopathy. AORTA / ARTERIES: No significant abnormality. IVC / VEINS: No significant abnormality. URINARY BLADDER: No significant abnormality. REPRODUCTIVE ORGANS: No significant abnormality. ADDITIONAL ABDOMINAL/PELVIC FINDINGS: None. SKELETAL SYSTEM: No significant abnormality. IMPRESSION: 1. No acute findings. No urolithiasis. Signer Name: Maynor Khanna II, MD Signed: 07/20/2021 7:54 AM Workstation Name: [id number]
[2021-07-20 08:49] LABS: Bilirubin,Urine NEG (Negative); Blood,Urine NEG (Negative); Color,Urine Amber (Yellow); Mucus,Urine FEW /HPF; Protein,Urine <15 mg/dL mg/dL (Negative)
[2021-07-20 10:31] VITALS: BP 140/90
== END 2021-07-20 10:31 | disposition home or self-care (01) ==
LOC: ED 04:33
DX: R30.0 Dysuria (principal); R10.30 Lower abdominal pain, unspecified; R10.9 Unspecified abdominal pain; I10 Essential (primary) hypertension; R31.9 Hematuria, unspecified
CPT/HCPCS: 36415; 74176; 80053; 81001; 85025; 99284; J1885; J7030; Q0162

== ENCOUNTER 2021-07-21 21:07 | Emergency (ER) | payer SELFPAY ==
[2021-07-21 22:44] VITALS: BP 182/95
[2021-07-21 23:42] LABS: Bilirubin,Urine NEG (Negative); Blood,Urine NEG (Negative); Color,Urine Yellow (Yellow); Mucus,Urine FEW /HPF; Protein,Urine <15 mg/dL mg/dL (Negative); RBC,Urine < 1.0 /HPF (0.0-6.0)
[2021-07-21] MEDS ORDERED: PHENAZOPYRIDINE 200 MG TAB PO ONE (23:51)
[2021-07-21] MEDS ORDERED: IBUPROFEN 600 MG TAB PO ONE (23:51)
[2021-07-21] MEDS ORDERED: LIDOCAINE-MPF (1%) 10 MG/1 ML VIAL 5 ML INFILTRATI ONE (23:51)
--- NOTE | 2021-07-21 23:58 | Emergency Department Report ---
ED Male HPI - General Chief complaint: Urogenital-Male Stated complaint: BURNING ON GROIN AREA Source: patient Mode of arrival: Ambulatory Limitations: No Limitations - History of Present Illness Initial comments: Patient is a 35-year-old -[place] male with a history of morbid obesity and hypertension and noncompliant with medications who presents to the ED with complaint of persistent dysuria, urinary frequency and urgency and penile discharge for the last 2 days out of having unprotected sexual intercourse with his female sexual partner about 4 days ago. Patient states that the symptoms have been constant and persistent and that he can hardly sit down without going to the bathroom. Patient denies dizziness, syncope, fever, chills, nausea, vomiting, testicular pain, hematuria, low back pain, abdominal pain or diarrhea and headache. MD Complaint: penile discharge, dysuria, other (Urinary frequency and urgency; ) -: Sudden, days(s) (2) Location: penis Radiation: none Severity: severe Severity scale (0 -10): 8 Quality: burning, sharp Consistency: constant Improves with: none Worsens with: urination new sexual partner denies other symptoms, discharge, dysuria, other (Urinary urgency and frequency). denies: swelling, mass, rash, urinary retention, blood in urine, fever, nausea/vomiting, incontinence - Related Data Sexually active: Yes (Unprotected sexual intercourse) Previous Rx's Medication Instructions Recorded Last Taken Type Amlodipine Besylate [Norvasc] 5 mg PO DAILY #30 tablet 09/03/20 Unknown Rx methocarbamoL [Methocarbamol] 1,500 mg PO TID PRN #24 tablet 11/20/20 Unknown Rx Colchicine [Colcrys] 0.6 mg PO BID 3 Days #6 tablet 04/21/21 Unknown Rx Naproxen [Naprosyn] 500 mg PO BID PRN #20 tablet 04/21/21 Unknown Rx oxyCODONE /ACETAMINOPHEN [Percocet 1 tab PO Q6HR PRN #12 tablet 04/21/21 Unknown Rx 5/325 mg] predniSONE [Deltasone] 50 mg PO QDAY #5 tab 04/21/21 Unknown Rx Doxycycline Hyclate 100 mg PO Q12H #28 cap 07/22/21 Unknown Rx Ibuprofen [Motrin] 800 mg PO Q8HR PRN #30 tablet 07/22/21 Unknown Rx Phenazopyridine [Pyridium] 200 mg PO Q12H #20 tab 07/22/21 Unknown Rx Allergies Allergy/AdvReac Type Severity Reaction Status Date / Time No Known Allergies Allergy Verified 09/03/20 10:07 ED Review of Systems ROS: Stated complaint: BURNING ON GROIN AREA Other details as noted in HPI Constitutional: denies: chills, fever Eyes: denies: eye pain, eye discharge, vision change ENT: denies: ear pain, throat pain Respiratory: denies: cough, shortness of breath, wheezing Cardiovascular: denies: chest pain, palpitations Endocrine: no symptoms reported Gastrointestinal: denies: abdominal pain, nausea, vomiting, diarrhea Genitourinary: urgency, dysuria, frequency, discharge. denies: hematuria, testicular pain, testicular mass Musculoskeletal: denies: back pain, joint swelling, arthralgia Skin: denies: rash, lesions Neurological: denies: headache, weakness, paresthesias Psychiatric: denies: anxiety, depression Hematological/Lymphatic: denies: easy bleeding, easy bruising ED Past Medical Hx - Past Medical History Previous Medical History?: Yes Hx Hypertension: Yes (NOT MEDICATED) Additional medical history: gout. Obesity - Surgical History Past Surgical History?: No - Social History Smoking Status: Never Smoker Substance Use Type: None - Medications Home Medications: Home Medications Medication Instructions Recorded Confirmed Last Taken Type Amlodipine Besylate [Norvasc] 5 mg PO DAILY #30 tablet 09/03/20 Unknown Rx methocarbamoL [Methocarbamol] 1,500 mg PO TID PRN #24 tablet 11/20/20 Unknown Rx Colchicine [Colcrys] 0.6 mg PO BID 3 Days #6 tablet 04/21/21 Unknown Rx Naproxen [Naprosyn] 500 mg PO BID PRN #20 tablet 04/21/21 Unknown Rx oxyCODONE /ACETAMINOPHEN [Percocet 1 tab PO Q6HR PRN #12 tablet 04/21/21 Unknown Rx 5/325 mg] predniSONE [Deltasone] 50 mg PO QDAY #5 tab 04/21/21 Unknown Rx Doxycycline Hyclate 100 mg PO Q12H #28 cap 07/22/21 Unknown Rx Ibuprofen [Motrin] 800 mg PO Q8HR PRN #30 tablet 07/22/21 Unknown Rx Phenazopyridine [Pyridium] 200 mg PO Q12H #20 tab 07/22/21 Unknown Rx ED Physical Exam - General Limitations: No Limitations General appearance: alert, in no apparent distress - Head Head exam: Present: atraumatic, normocephalic, normal inspection - Eye Eye exam: Present: normal appearance, PERRL, EOMI Pupils: Present: normal accommodation - ENT ENT exam: Present: normal exam, normal orophraynx, mucous membranes moist, TM's normal bilaterally, normal external ear exam - Neck Neck exam: Present: normal inspection, full ROM. Absent: tenderness - Respiratory Respiratory exam: Present: normal lung sounds bilaterally. Absent: respiratory distress, wheezes, rales, rhonchi, stridor, chest wall tenderness, accessory muscle use, decreased breath sounds, prolonged expiratory - Cardiovascular Cardiovascular Exam: Present: regular rate, normal rhythm, normal heart sounds. Absent: systolic murmur, diastolic murmur, rubs, gallop - GI/Abdominal GI/Abdominal exam: Present: soft, normal bowel sounds. Absent: tenderness, guarding, rebound, hyperactive bowel sounds, hypoactive bowel sounds, organomegaly, mass, bruit - External exam: Present: other (Genital exam deferred at this time) - Extremities Exam Extremities exam: Present: normal inspection, full ROM, normal capillary refill - Back Exam Back exam: Present: normal inspection, full ROM. Absent: tenderness, CVA tenderness (R), CVA tenderness (L), muscle spasm, paraspinal tenderness, vertebral tenderness - Neurological Exam Neurological exam: Present: alert, oriented X3, CN II-XII intact, normal gait, reflexes normal - Psychiatric Psychiatric exam: Present: normal affect, normal mood - Skin Skin exam: Present: warm, dry, intact, normal color. Absent: rash ED Course Vital Signs 07/21/21 22:36 Temperature 98.2 F Pulse Rate 95 H Respiratory 18 Rate Blood Pressure 182/95 [Right] O2 Sat by Pulse 97 Oximetry ED Medical Decision Making - Medical Decision Making This is a 35-year-old -[place] male with a history of morbid obesity and hypertension and noncompliant with medications who presents to the ED with complaint of persistent dysuria, urinary frequency and urgency and penile discharge for the last 2 days out of having unprotected sexual intercourse with his female sexual partner about 4 days ago. Patient states that the symptoms have been constant and persistent and that he can hardly sit down without going to the bathroom. In the ED, patient is alert and oriented x3 and is not in any distress. Urinalysis shows significant urinary tract infection suspected to be due to gonorrhea and chlamydia based on the history and physical exam. Patient was treated in the ED empirically with Rocephin 1 g intramuscular injection and patient was discharged home on doxycycline 100 mg twice a day for 2 weeks. Patient was advised to follow-up with the [facility] for further STD testing including HIV and syphilis. Patient was also advised to ensure that his sexual partner also gets evaluated and treated for the same. Patient was counseled on the importance of having safe sexual practices. Patient is advised return to the ED immediately if symptoms get worse. - Differential Diagnosis STD; urethritis; gonorrhea; chlamydia; UTI Critical care attestation.: If time is entered above; I have spent that time in minutes in the direct care of this critically ill patient, excluding procedure time. ED Disposition Clinical Impression: Urethritis, nonspecific, STD (sexually transmitted disease), Acute urinary tract infection Disposition: 01 HOME / SELF CARE / HOMELESS Is pt being admited?: No Does the pt Need Aspirin: No Condition: Stable Instructions: Urinary Tract Infection, Adult, [id number], Urethritis, Adult, Gonorrhea, Chlamydia, Male Additional Instructions: Take medication with food, drink plenty fluids and follow-up with your primary care physician or at the [facility] for further STD testing including syphilis and HIV. Ensure that you inform your sexual partner to also be evaluated and treated for the same. Observe safe sexual practices. Return to the ED immediately if symptoms get worse. Prescriptions: Doxycycline Hyclate 100 mg PO Q12H #28 cap Ibuprofen [Motrin] 800 mg PO Q8HR PRN #30 tablet PRN Reason: Pain , Severe (7-10) Phenazopyridine [Pyridium] 200 mg PO Q12H #20 tab Referrals: [facility] Depart [Outside] - 7-10 days Forms: STI Treatment and Prevention Time of Disposition: 00:00 Print Language: AZERI
[2021-07-22] MEDS ORDERED: IBUPROFEN 600 MG TAB PO ONE (02:00)
[2021-07-22] MEDS ORDERED: LIDOCAINE-MPF (1%) 10 MG/1 ML VIAL 5 ML INFILTRATI ONE (02:00)
[2021-07-22] MEDS ORDERED: PHENAZOPYRIDINE 200 MG TAB PO ONE (02:00)
== END 2021-07-22 01:27 | disposition home or self-care (01) ==
LOC: ED 21:07
DX: A64 Unspecified sexually transmitted disease (principal); N34.2 Other urethritis
CPT/HCPCS: 81001; 99283; J0696; J3490